=== PATIENT | male | born 1985 | race Caucasian/White ===

== ENCOUNTER 2017-04-03 18:31 | Emergency (ER) | payer BC ==
[2017-04-03] MEDS ORDERED: Albuterol/Ipratropium 3.0-0.5 MG/3 ML Neb Soln NEB ONE ×3 (18:33→19:43)
[2017-04-03] MEDS ORDERED: methylPREDNISolone Sodium Succinate 125 MG/2 ML SDV ONE (18:40)
[2017-04-03] MEDS ORDERED: methylPREDNISolone Sodium Succinate 125 MG/2 ML SDV IVPUSH ONE (18:41)
[2017-04-03] MEDS ORDERED: Sodium Chloride 0.9% 1,000 ML IV ONE (18:41)
--- NOTE | 2017-04-03 18:52 | EDM.PDOC ---
ED HPI GENERAL MEDICAL PROBLEM - General Chief Complaint: Respiratory Problem Stated Complaint: PT HAS DIFFICULTY BREATHING Time Seen by Provider: 04/03/17 18:41 Source of Information: Reports: Patient History Limitations: Reports: No Limitations - History of Present Illness INITIAL COMMENTS - FREE TEXT/NARRATIVE: HISTORY AND PHYSICAL: History of present illness: Patient is a 31-year-old male who presents to the emergency room with respiratory distress. He states he started to feel unwell approximately 1 week ago with fever, cough, and generalized body aches. Approximately one hour ago he states he started become short of breath and having audible expiratory wheezing. He does have a history of asthma and pneumonia that does not take any inhalers. Patient is a on and off smoker for the past 5 years. Patient was able to ambulate into the room but there was audible wheezing and stridor noted. Labored breathing noted. Review of systems: As per history of present illness and below otherwise all systems reviewed and negative. Past medical history: As per history of present illness and as reviewed below otherwise noncontributory. Surgical history: As per history of present illness and as reviewed below otherwise noncontributory. Social history: No reported history of drug or alcohol abuse. Family history: As per history of present illness and as reviewed below otherwise noncontributory. Physical exam: Gen.: Well developed well-nourished 31-year-old male. Mildly ill, alert and oriented. Able to speak in short brief sentences before becoming short of breath HEENT: Atraumatic, normocephalic, pupils reactive, negative for conjunctival pallor or scleral icterus, mucous membranes moist, throat clear, neck supple, nontender, trachea midline. Lungs: Poor air exchange throughout, very diminished, chest nontender. Heart: S1S2 regular rate and rhythm Abdomen: Soft, nondistended, nontender. Negative for masses or hepatosplenomegaly. Negative for costovertebral tenderness. Pelvis: Stable nontender. Genitourinary: Deferred. Rectal: Deferred. Extremities: Atraumatic, negative for cords or calf pain. Neurovascular unremarkable. Neuro: Awake, alert, oriented. Cranial nerves II through XII unremarkable. Cerebellum unremarkable. Motor and sensory unremarkable throughout. Exam nonfocal. After 2 DuoNeb's the patient is exchanging air better throughout. Patient reports that he does feel "somewhat improved". Oxygen saturations remain above 95% on room air. I did offer the patient admission, he declined at this time. He states that he does not live far from here and will monitor symptoms at home. He will return to the emergency room if his symptoms return or worsen. We reviewed the prescriptions he will be receiving today. Patient voices understanding. Due to the patient's history of smoking and asthma I will treat as an atypical pneumonia and give 1 g of Rocephin IV here and he can fill his prescriptions tomorrow. Requested that the patient follow up with his primary care provider in the next 1-2 days. Patient voices understanding and is agreeable to plan of care. He denies any further questions at this time. Diagnostics: 2 view chest x-ray Therapeutics: DuoNeb, Solu-Medrol, Rocephin Impression: Asthma exacerbation Atypical pneumonia Plan: 1. You declined admission at this time. Her symptoms worsen or return please return to the emergency room as we discussed. 2. Prescription for a Zithromax and Medrol Dosepak and has been prescribed to please take as directed. Have been prescribed an inhaler to be taken 2 puffs every 4-6 hours as needed at the onset of difficulty breathing. He may take this prior to any physical activity to help alleviate any symptoms he may anticipate. 3. Follow-up with your primary care provider in the next 1-2 days. Return to the ED as needed and as discussed. Definitive disposition and diagnosis as appropriate pending reevaluation and review of above. Onset: Today Duration: Hour(s): Location: Reports: Chest - Related Data Allergies Allergy/AdvReac Type Severity Reaction Status Date / Time codeine Allergy Airway Verified 04/03/17 18:40 Tightness Home Meds: Home Meds . 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 Broke radium left arm. Hx left ankle fx Hematologic History: Reports: Anesthesia Reaction, Other (See Below) Other Hematologic History: unsure of reaction, but thinks was from IV medication , they had to stop and have come back next day and try different medications - Past Surgical History GI Surgical History: Reports: Colonoscopy, Small Bowel Musculoskeletal Surgical History: Reports: Amputation, Other (See Below) Social & Family History - Family History Family Medical History: Noncontributory Cardiac: Reports: Hypertension Oncologic: Reports: Breast, Liver - Tobacco Use Smoking Status *Q: Current Every Day Smoker Years of Tobacco use: 5 Packs/Tins Daily: 0.5 Used Tobacco, but Quit: No Second Hand Smoke Exposure: Yes - Caffeine Use Caffeine Use: Reports: None - Recreational Drug Use Recreational Drug Use: No ED ROS GENERAL - Review of Systems Review Of Systems: ROS reveals no pertinent complaints other than HPI. ED EXAM, GENERAL - Physical Exam Exam: See Below (See dictation) Course - Vital Signs Last Recorded V/S: Last Vital Signs Temp 36.6 C 04/03/17 20:53 Pulse 75 04/03/17 20:53 Resp 19 04/03/17 20:53 BP 143/66 H 04/03/17 20:53 Pulse Ox 97 04/03/17 20:53 - Orders/Labs/Meds Orders: Active Orders 24 hr Category Date Time Status RT Aerosol Therapy [RC] ASDIRECTED Care 04/03/17 18:34 Active RT Aerosol Therapy [RC] ASDIRECTED Care 04/03/17 18:41 Active RT Aerosol Therapy [RC] ASDIRECTED Care 04/03/17 19:43 Active Chest 2V [CR] Stat Exams 04/03/17 18:41 Taken Meds: Medications Discontinued Medications Generic Name Dose Route Start Last Admin Trade Name Ángela PRN Reason Stop Dose Admin Albuterol/Ipratropium 3 ml 04/03/17 18:33 04/03/17 18:33 Duoneb 3.0-0.5 Mg/3 Ml NEB 04/03/17 18:34 3 ml ONETIME ONE Administration Albuterol/Ipratropium 3 ml 04/03/17 18:41 04/03/17 18:53 Duoneb 3.0-0.5 Mg/3 Ml NEB 04/03/17 18:42 3 ml ONETIME ONE Administration Albuterol/Ipratropium 3 ml 04/03/17 19:43 04/03/17 20:29 Duoneb 3.0-0.5 Mg/3 Ml NEB 04/03/17 19:44 3 ml ONETIME ONE Administration Sodium Chloride 1,000 mls @ 999 mls/hr 04/03/17 18:41 04/03/17 19:15 Normal Saline IV 04/03/17 19:41 999 mls/hr STAT ONE Administration Ceftriaxone Sodium/Dextrose 1 50 mls @ 100 mls/hr 04/03/17 19:44 04/03/17 20: 25 gm/ Premix IV 04/03/17 20:13 100 mls/hr ONETIME ONE Administration Methylprednisolone Sodium Succinate 125 mg 04/03/17 18:41 04/03/17 19:15 Solu-Medrol IVPUSH 04/03/17 18:42 125 mg ONETIME ONE Administration Methylprednisolone Sodium Succinate Confirm 04/03/17 18:40 04/03/17 19:16 Solu-Medrol Administered 04/03/17 18:41 Not Given Dose 125 mg .ROUTE .STK-MED ONE Departure - Departure Time of Disposition: 20:10 Disposition: Home, Self-Care 01 Clinical Impression: Atypical pneumonia Asthma exacerbation Qualifiers: Asthma severity: mild Asthma persistence: intermittent Qualified Code(s): J45.21 - Mild intermittent asthma with (acute) exacerbation - Discharge Information Instructions: Asthma, Adult, Community-Acquired Pneumonia, Adult, [id number] Referrals: PCP,None [Primary Care Provider] - Forms: ED Department Discharge Additional Instructions: My general discharge The following information is given to patients seen in the emergency department who are being discharged to home. This information is to outline your options for follow-up care. We provide all patients seen in our emergency department with a follow-up referral. The need for follow-up, as well as the timing and circumstances, are variable depending upon the specifics of your emergency department visit. If you don't have a primary care physician on staff, we will provide you with a referral. We always advise you to contact your personal physician following an emergency department visit to inform them of the circumstance of the visit and for follow-up with them and/or the need for any referrals to a consulting specialist. The emergency department will also refer you to a specialist when appropriate. This referral assures that you have the opportunity for follow-up care with a specialist. All of these measure are taken in an effort to provide you with optimal care, which includes your follow-up. Under all circumstances we always encourage you to contact your private physician who remains a resource for coordinating your care. When calling for follow-up care, please make the office aware that this follow-up is from your recent emergency room visit. If for any reason you are refused follow-up, please contact the [facility] Emergency Department at and asked to speak to the emergency department charge nurse. [facility] [place] [id number] 1. You declined admission at this time. Her symptoms worsen or return please return to the emergency room as we discussed. 2. Prescription for a Zithromax and Medrol Dosepak and has been prescribed to please take as directed. Have been prescribed an inhaler to be taken 2 puffs every 4-6 hours as needed at the onset of difficulty breathing. He may take this prior to any physical activity to help alleviate any symptoms he may anticipate. 3. Follow-up with your primary care provider in the next 1-2 days. Return to the ED as needed and as discussed. - My Orders Last 24 Hours: My Active Orders 04/03/17 18:34 RT Aerosol Therapy [RC] ASDIRECTED 04/03/17 18:41 RT Aerosol Therapy [RC] ASDIRECTED Chest 2V [CR] Stat 04/03/17 19:43 RT Aerosol Therapy [RC] ASDIRECTED - Assessment/Plan Last 24 Hours: My Active Orders 04/03/17 18:34 RT Aerosol Therapy [RC] ASDIRECTED 04/03/17 18:41 RT Aerosol Therapy [RC] ASDIRECTED Chest 2V [CR] Stat 04/03/17 19:43 RT Aerosol Therapy [RC] ASDIRECTED
[2017-04-03] MEDS ORDERED: cefTRIAXone 1 GM in Premix Bag 1 BAG IV ONE (19:44)
[2017-04-03 20:54] VITALS: BP 143/66
--- NOTE | 2017-04-04 16:19 | CR ---
EXAM DATE: 04/03/17 PATIENT'S AGE: 31 Patient: NEENA BRADLEY Facility: [place], [place] Site . Site : 1985 Study: XRay Chest [id number] 7:28:20 PM Ordering Physician: Doctor Dennison Final Report: INDICATION: Chest pain/sob TECHNIQUE: Chest radiograph 2 views COMPARISON: None FINDINGS: Cardiovascular and mediastinum: The cardiac silhouette is normal in appearance and size. Mediastinum is within normal limits. Lungs and pleural spaces: Both lungs are unremarkable in appearance. No sign of pleural effusion. No pneumothorax is seen. Bones and soft tissues: No significant findings. IMPRESSION: 1. No acute cardiopulmonary disease seen. Dictated by: Yordy Johnson MD @ 04/03/2017 19:54:57 (Electronic Signature) Report Signed by Proxy. [facility]
== END 2017-04-03 21:11 | disposition home or self-care (01) ==
LOC: MW.ED 18:31
DX: J45.21 Mild intermittent asthma with (acute) exacerbation (principal); J18.9 Pneumonia, unspecified organism; F17.210 Nicotine dependence, cigarettes, uncomplicated; Z88.5 Allergy status to narcotic agent
CPT/HCPCS: 71020; 87804; 94640; 96361; 96365; 96375; 99284; J0696; J2930; J7040; 99283